=== PATIENT | male | born 1990 | race African-American/Black ===

== ENCOUNTER 2017-07-05 12:55 | Emergency (ER) | payer SELFPAY ==
[~2017-07-05] VITALS: Ht 177.8 cm; Wt 72.6 kg
[~2017-07-05 12:55] MED LIST: DiphenhydrAMINE 50mg/ml Inj ONE; Haloperidol 5mg/ml Inj ONE; LORazepam Inj 2mg/ml 1ml ONE
[2017-07-05 13:00] VITALS: BP 135/99
[2017-07-05] MEDS ORDERED: Haloperidol 5mg/ml Inj IM ONE ×3 (13:00→15:30)
[2017-07-05] MEDS ORDERED: DiphenhydrAMINE 50mg/ml Inj IM ONE (13:00)
[2017-07-05] MEDS ORDERED: LORazepam Inj 2mg/ml 1ml IM ONE (13:00)
[2017-07-05 14:00] VITALS: BP 113/57
[2017-07-05 14:35] LABS: BASOPHILS % (AUTO) 0.8 % (0.0-2.0); EOSINOPHILS % (AUTO) 0.3 % (0.0-3.0); HEMATOCRIT 47.4 % (42.0-52.0); HEMOGLOBIN 15.7 G/DL (14.2-18.0); LYMPHOCYTES % (AUTO) 16.5 % (20.0-45.0); MEAN CORPUSCULAR VOLUME 97 FL (80-99); MONOCYTES % (AUTO) 10.2 % (1.0-10.0); NEUTROPHILS % (AUTO) 72.3 % (45.0-75.0); PLATELET COUNT 184 K/UL (150-450); RED BLOOD COUNT 4.91 M/UL (4.70-6.10); RED CELL DISTRIBUTION WIDTH 12.8 % (11.6-14.8); WHITE BLOOD COUNT 5.8 K/UL (4.8-10.8)
--- NOTE | 2017-07-05 14:45 | Emergency Room Report ---
History of Present Illness General Chief Complaint: Overdose Source: Patient, EMS (Juliocesar Dyer M.D.) Present Illness HPI Patient brought in by EMS. They were called along with police for agitated behavior. They claim he was calm, then jumped out of their ambulance. They did not give him Versed in the field. He continued to be agitated after he jumped out of their ambulance. The patient is unable to give any coherent history. He is screaming that we are going to kill him. (Juliocesar Dyer M.D.) Allergies: Coded Allergies: No Known Allergies (Unverified , 07/05/17) Patient History Limited by: medical condition Past Medical History: see triage record Social History: Reports: drug use Social History Narrative on streets Reviewed Nursing Documentation: PMH: Agreed, PSxH: Agreed (Juliocesar Dyer M.D.) Nursing Documentation-PMH Past Medical History: No Stated History (Juliocesar Dyer M.D.) Review of Systems All Other Systems: limited (Juliocesar Dyer M.D.) Physical Exam Vital Signs Date Time Temp Pulse Resp B/P (MAP) Pulse Ox O2 Delivery O2 Flow Rate FiO2 07/05/17 12:50 97.6 115 20 135/99 98 Room Air 97.5 Sp02 EP Interpretation: reviewed, normal General Appearance: alert, severe distress Head: normocephalic, atraumatic Eyes: bilateral eye PERRL, bilateral eye Scleral Injection ENT: dry mucus membranes Neck: full range of motion Respiratory: lungs clear, normal breath sounds Cardiovascular #1: tachycardia Cardiovascular #2: 2+ radial (L) Gastrointestinal: normal inspection, non tender, no mass, non-distended, decreased bowel sounds, scaphoid Genitourinary: normal inspection Musculoskeletal: back normal, normal range of motion Neurologic: alert, motor strength/tone normal Psychiatric: anxious - agitated and not responding to external input Skin: normal inspection, warm/dry (Juliocesar Dyer M.D.) Medical Decision Making Restraint Attestation Patient danger to self and others. Psychotic. Needs sedation for further evaluation and treatment. Medical: Substance Abuse Reaction to Intervention: No change Restraint Reassesment Improved but still agitated and disoriented. Needs additional dose of haldol ( ordered). (Juliocesar Dyer M.D.) Diagnostic Impression: Primary Impression: Drug overdose Qualified Codes: T50.904A - Poisoning by unspecified drugs, medicaments and biological substances, undetermined, initial encounter Additional Impressions: Transient organic psychosis Rhabdomyolysis Renal insufficiency ER Course Patient presents with agitated delirium with alleged drug ingestion. DDx: drug induced psychosis, rhabdomyolysis, electrolyte abnormalities amongst others. Patient with non-focal neuro and afebrile - no imaging studies indicated at this time (however will need repeat assessment). Treatment with sedation, IV hydration and cardiac observation. Patient somewhat better after initial dose for sedation (able to start IV and further tx). Still fighting and not responding to external commands. Repeat Haldol. Patient sedated. Labs with some rhabdo and renal insufficiency. Continued hydration. Signed out to Dr. Crystal for re-evaluation. Laboratory Tests Test 07/05/17 14:20 07/05/17 14:30 White Blood Count 5.8 K/UL (4.8-10.8) Red Blood Count 4.91 M/UL (4.70-6.10) Hemoglobin 15.7 G/DL (14.2-18.0) Hematocrit 47.4 % (42.0-52.0) Mean Corpuscular Volume 97 FL (80-99) Mean Corpuscular Hemoglobin 31.9 PG (27.0-31.0) H Mean Corpuscular Hemoglobin Concent 33.1 G/DL (32.0-36.0) Red Cell Distribution Width 12.8 % (11.6-14.8) Platelet Count 184 K/UL (150-450) Mean Platelet Volume 6.8 FL (6.5-10.1) Neutrophils (%) (Auto) 72.3 % (45.0-75.0) Lymphocytes (%) (Auto) 16.5 % (20.0-45.0) L Monocytes (%) (Auto) 10.2 % (1.0-10.0) H Eosinophils (%) (Auto) 0.3 % (0.0-3.0) Basophils (%) (Auto) 0.8 % (0.0-2.0) Sodium Level 137 MMOL/L (136-145) Potassium Level 4.2 MMOL/L (3.5-5.1) Chloride Level 101 MMOL/L (98-107) Carbon Dioxide Level 30 MMOL/L (21-32) Anion Gap 7 mmol/L (5-15) Blood Urea Nitrogen 15 mg/dL (7-18) Creatinine 1.7 MG/DL (0.55-1.30) H Estimate Glomerular Filtration Rate 59.4 mL/min (>60) Glucose Level 97 MG/DL (74-106) Calcium Level 8.8 MG/DL (8.5-10.1) Total Bilirubin 0.6 MG/DL (0.2-1.0) Aspartate Amino Transferase (AST) 41 U/L (15-37) H Alanine Aminotransferase (ALT) 28 U/L (12-78) Alkaline Phosphatase 60 U/L (46-116) Total Creatine Kinase 1266 U/L (26-308) H Total Protein 6.5 G/DL (6.4-8.2) Albumin 3.4 G/DL (3.4-5.0) Globulin 3.1 g/dL Albumin/Globulin Ratio 1.1 (1.0-2.7) Salicylates Level 1.1 ug/mL (2.8-20) L Acetaminophen Level < 2 MCG/ML (10-30) L Serum Alcohol < 3 mg/dL Urine Color Yellow Urine Appearance Clear Urine pH 6 (4.5-8.0) Urine Specific [place] 1.025 (1.005-1.035) Urine Protein 2+ (NEGATIVE) H Urine Glucose (UA) Negative (NEGATIVE) Urine Ketones 1+ (NEGATIVE) H Urine Occult Blood Negative (NEGATIVE) Urine Nitrite Negative (NEGATIVE) Urine Bilirubin Negative (NEGATIVE) Urine Urobilinogen 1 MG/DL (0.0-1.0) H Urine Leukocyte Esterase 1+ (NEGATIVE) H Urine RBC 0-2 /HPF (0 - 0) H Urine WBC 0-2 /HPF (0 - 0) Urine Squamous Epithelial Cells None /LPF (NONE/OCC) Urine Bacteria Occasional /HPF (NONE) Urine Opiates Screen Negative (NEGATIVE) Urine Barbiturates Screen Negative (NEGATIVE) Phencyclidine (PCP) Screen Negative (NEGATIVE) Urine Amphetamines Screen Positive (NEGATIVE) H Urine Benzodiazepines Screen Negative (NEGATIVE) Urine Cocaine Screen Negative (NEGATIVE) Urine Marijuana (THC) Screen Positive (NEGATIVE) H (Juliocesar Dyer M.D.) ER Course I received signout from Dr. Dyer 26-year-old male, agitated, drug intoxication. Lab work was significant for rhabdomyolysis. Received boluses of fluid. Patient still very agitated, was already sedated, given Haldol. Urine toxicology is positive for amphetamines and marijuana Patient currently still sedated Patient is now awake alert, very calm and cooperative, ANO x4, states that he did drugs. No endorsing any SI, HI, or hallucinations. Will be discharged to home (Diana Crystal M.D.) EKG Diagnostic Results Rate: normal Rhythm: NSR ST Segments: no acute changes (Juliocesar Dyer M.D.) Rhythm Strip Diag. Results EP Interpretation: yes Rhythm: NSR, no PVC's, no ectopy (Juliocesar Dyer M.D.) Last Vital Signs Date Time Temp Pulse Resp B/P (MAP) Pulse Ox O2 Delivery O2 Flow Rate FiO2 07/05/17 19:15 98.5 70 16 127/80 99 Room Air 98.5 Status: improved (Juliocesar Dyer M.D.) Disposition: HOME, SELF-CARE Condition: Improved Referrals: NOT CHOSEN IPA/,REFERRING (PCP) Juliocesar Dyer M.D. Jul 05, 2017 14:45 Diana Crystal M.D. Jul 05, 2017 16:30
[2017-07-05 14:50] LABS: ANION GAP 7 mmol/L (5-15); BLOOD UREA NITROGEN 15 mg/dL (7-18); CALCIUM 8.8 MG/DL (8.5-10.1); CARBON DIOXIDE 30 MMOL/L (21-32); CHLORIDE 101 MMOL/L (98-107); CREATININE 1.7 MG/DL (0.55-1.30); POTASSIUM 4.2 MMOL/L (3.5-5.1); SODIUM 137 MMOL/L (136-145)
[2017-07-05 15:00] VITALS: BP 144/88
[2017-07-05 15:02] LABS: ALANINE AMINOTRANSFERASE 28 U/L (12-78); ALBUMIN 3.4 G/DL (3.4-5.0); ALBUMIN/GLOBULIN RATIO 1.1 (1.0-2.7); ALKALINE PHOSPHATASE 60 U/L (46-116); ASPARTATE AMINO TRANSFERASE 41 U/L (15-37); BILIRUBIN,TOTAL 0.6 MG/DL (0.2-1.0); CREATINE KINASE 1266 U/L (26-308)
[2017-07-05 15:23] LABS: APPEARANCE,URINE CLEAR; BILIRUBIN, URINE NEGATIVE (NEGATIVE); GLUCOSE, URINE (UA) NEGATIVE (NEGATIVE); KETONES,URINE 1+ (NEGATIVE); LEUKOCYTE ESTERASE ,URINE 1+ (NEGATIVE); NITRITE,URINE NEGATIVE (NEGATIVE); PH,URINE 6 (4.5-8.0); PROTEIN,URINE 2+ (NEGATIVE); UROBILINOGEN,URINE 1 MG/DL (0.0-1.0)
[2017-07-05 15:24] LABS: COLOR,URINE YELLOW
[2017-07-05 16:00] VITALS: BP_SYST 135; BP_SYST 144; BP_DIAS 76; BP_DIAS 88
[2017-07-05 19:15] VITALS: BP 127/80
--- NOTE | 2017-07-06 12:52 | Cardiology Report ---
APPROVED REPORT EKG Measurement Heart [id number] CT [id number] Sinus rhythm with sinus arrhythmia with short CT Right atrial enlargement Borderline ECG
== END 2017-07-05 19:15 | disposition home or self-care (01) ==
LOC: EDBD 12:55 → EMR 13:28
DX: T50.901A Poisoning by unspecified drugs, medicaments and biological substances, accidental (unintentional), initial encounter (principal); F23 Brief psychotic disorder; M62.82 Rhabdomyolysis; N28.9 Disorder of kidney and ureter, unspecified
CPT/HCPCS: 36415; 80053; 80307; 81003; 82550; 85025; 93005; 96360; 96361; 96372; 99284; G0480; J1200; J1630; 80329